=== PATIENT | male | born 1980 | race Hispanic/Latino ===

== ENCOUNTER 2022-05-07 06:10 | Emergency (ER) | payer SELFPAY ==
[2022-05-07] MEDS ORDERED: FLUORESCEIN SODIUM 1 MG/WRAP ONE (06:32)
[2022-05-07] MEDS ORDERED: TETRACAINE HCL 0.5% 4ML OPTH ONE (06:32)
--- NOTE | 2022-05-07 06:56 | ER ---
Nurse's Notes [facility] Name: Francisco Javier Ho Age: 41 yrs Sex: Male : 1980 Arrival Date: 05/07/2022 Time: 06:17 Bed 5 Private MD: Diagnosis: Right corneal foreign body, right corneal abrasion after foreign body removal Presentation: 05/07 06:30 Chief complaint: Spouse and/or significant other states: "He was cutting wood and felt vc1 like he got something in his eye.". Coronavirus screen: Vaccine status: Patient reports being unvaccinated. Client denies travel out of the [place] in the last 14 days. At this time, the client does not indicate any symptoms associated with coronavirus-19. Ebola Screen: Patient negative for fever greater than or equal to 101.5 degrees Fahrenheit, and additional compatible Ebola Virus Disease symptoms Patient denies exposure to infectious person. Patient denies travel to an Ebola-affected area in the 21 days before illness onset. No symptoms or risks identified at this time. Initial Sepsis Screen: Does the patient meet any 2 criteria? No. Patient's initial sepsis screen is negative. Does the patient have a suspected source of infection? No. Patient's initial sepsis screen is negative. Risk Assessment: Do you want to hurt yourself or someone else? Patient reports no desire to harm self or others. Onset of symptoms was May 06, 2022. 06:30 Method Of Arrival: Ambulatory vc1 06:30 Acuity: HUSSAIN 4 vc1 Triage Assessment: 06:33 General: Appears in no apparent distress. uncomfortable, Behavior is calm, cooperative, vc1 appropriate for age. Pain: Complains of pain in right eye Pain currently is 10 out of 10 on a pain scale. Noted to be resistant to opening eye; eye watering. EENT: Eyes are tearing on right inner canthus with foreign body noted in iris of right eye. Neuro: No deficits noted. Cardiovascular: No deficits noted. Respiratory: Airway is patent Respiratory effort is even, unlabored, Respiratory pattern is regular, symmetrical. GI: No deficits noted. No signs and/or symptoms were reported involving the gastrointestinal system. : No deficits noted. No signs and/or symptoms were reported regarding the genitourinary system. Derm: No deficits noted. No signs and/or symptoms reported regarding the dermatologic system. Musculoskeletal: No deficits noted. No signs and/or symptoms reported regarding the musculoskeletal system. Historical: - Allergies: 06:32 No Known Allergies; vc1 - Home Meds: 06:32 None [Active]; vc1 - PMHx: 06:32 None; vc1 - PSHx: 06:32 None; vc1 - Immunization history:: Client reports having NOT received the Covid vaccine. - Social history:: Smoking status: Patient reports the use of cigarette tobacco products, 3-4 cigs per day. - Family history:: not pertinent. Screenin:34 [facility] ED Fall Risk Assessment (Adult) History of falling in the last 3 months, vc1 including since admission No falls in past 3 months (0 pts) Confusion or Disorientation No (0 pts) Intoxicated or Sedated No (0 pts) Impaired Gait No (0 pts) Mobility Assist Device Used No (0 pt) Altered Elimination No (0 pt) Score/Fall Risk Level 0 - 2 = Low Risk Oriented to surroundings, Maintained a safe environment, Educated pt \\T\\ family on fall prevention, incl call for assistance when getting out of bed. Abuse screen: Denies threats or abuse. Nutritional screening: No deficits noted. Tuberculosis screening: No symptoms or risk factors identified. Vital Signs: 06:30 BP 119 / 87; Pulse 70; Resp 15; Temp 97.9(O); Pulse Ox 100% ; Weight 65.77 kg; Height 5 vc1 ft. 5 in. (165.10 cm); Pain 10/10; 06:30 Body Mass Index 24.13 (65.77 kg, 165.10 cm) vc1 Visual Acuity: 06:55 Left Eye Visual acuity 20/50, Normal, React To Light; Right Eye Visual acuity 20/70, kd3 Normal, React To Light; Both Eyes Visual acuity 20/40; Without Lenses; ED Course: 06:17 Patient arrived in ED. jj6 06:24 Horace Lopes MD is Attending Physician. sp4 06:28 Yessenia Ann, JANETH is Primary Nurse. kd3 06:32 Triage completed. vc1 06:54 Jenni Paredes MD is Referral Physician. sp4 07:10 Arm band placed on right wrist. kd3 07:10 Patient has correct armband on for positive identification. kd3 07:10 No provider procedures requiring assistance completed. Patient did not have IV access kd3 during this emergency room visit. Administered Medications: 06:35 Drug: Tetracaine Drops 0.5 % 1 drops Route: Ophthalmic; Site: right eye; vc1 Medication: 06:35 VIS not applicable for this client. vc1 Outcome: 06:55 Discharge ordered by . sp4 07:10 Discharged to home ambulatory. kd3 07:10 Condition: stable 07:10 Condition: stable 07:10 Discharge instructions given to patient, family, Instructed on discharge instructions, follow up and referral plans. Demonstrated understanding of instructions, follow-up care. 07:11 Patient left the ED. kd3 Signatures: Frannie Monroy jj6 Yessenia Ann RN RN kd3 Molly Wills RN RN vc1 Horace Lopes MD MD sp4
--- NOTE | 2022-05-07 06:56 | EDPHYS ---
Physician Documentation [facility] Name: Francisco Javier Ho Age: 41 yrs Sex: Male : 1980 Arrival Date: 05/07/2022 Time: 06:17 Bed 5 Private MD: ED Physician Horace Lopes HPI: 05/07 06:25 This 41 yrs old Male presents to ER via Unassigned with complaints of Eye sp4 Problem. 06:25 The patient sustained 41-year-old male presents with right eye pain after chopping wood sp4 at work, patient feels there is a foreign body in the right eye. 06:41 Patient states that since yesterday he has pain redness and irritation of the right eye sp4 and sensation of foreign body. patient has no history of medical illness and has no medical allergies. Historical: - Allergies: 06:32 No Known Allergies; vc1 - Home Meds: 06:32 None [Active]; vc1 - PMHx: 06:32 None; vc1 - PSHx: 06:32 None; vc1 - Immunization history:: Client reports having NOT received the Covid vaccine. - Social history:: Smoking status: Patient reports the use of cigarette tobacco products, 3-4 cigs per day. - Family history:: not pertinent. ROS: 06:41 Constitutional: Negative for fever, chills, and weight loss, Eyes: Negative for sp4 purulent discharge, positive for redness discomfort and sensation of foreign body in the right eye, negative for left eye complaints ENT: Negative for injury, pain, and discharge, Neck: Negative for injury, pain, and swelling, Cardiovascular: Negative for chest pain, palpitations, and edema, Respiratory: Negative for shortness of breath, cough, wheezing, and pleuritic chest pain, Abdomen/GI: Negative for abdominal pain, nausea, vomiting, diarrhea, and constipation, Back: Negative for injury and pain, : Negative for injury, bleeding, discharge, and swelling, MS/Extremity: Negative for injury and deformity, Skin: Negative for injury, rash, and discoloration, Neuro: Negative for headache, weakness, numbness, tingling, and seizure, Psych: Negative for depression, anxiety, suicide ideation, homicidal ideation, and hallucinations, Allergy/Immunology: Negative for hives, rash, and allergies, Endocrine: Negative for neck swelling, polydipsia, polyuria, polyphagia, and marked weight changes. Exam: 06:41 Constitutional: This is a well developed, well nourished patient who is awake, alert, sp4 and in no acute distress. Head/Face: Normocephalic, atraumatic. Eyes: Pupils equal round and reactive to light, extra-ocular motions intact. Lids and lashes normal. Conjunctiva and sclera are non-icteric and not injected. Left eye exam is normal , periorbital areas with no swelling, redness, or edema. Right eye exam -there is a small foreign body right cornea at the 7 O'clock location, fluorescein exam, no foreign bodies under the lids, no corneal abrasions, no purulent discharge, no sign of globe perforation ENT: Nares patent. No nasal discharge, no septal abnormalities noted. Tympanic membranes are normal and external auditory canals are clear. Oropharynx with no redness, swelling, or masses, exudates, or evidence of obstruction, uvula midline. Mucous membranes moist. Neck: Trachea midline, no thyromegaly or masses palpated, and no cervical lymphadenopathy. Supple, full range of motion without nuchal rigidity, or vertebral point tenderness. No Meningismus. Chest/axilla: Normal chest wall appearance and motion. Nontender with no deformity. No lesions are appreciated. Cardiovascular: Regular rate and rhythm with a normal S1 and S2. No gallops, murmurs, or rubs. Normal PMI, no JVD. No pulse deficits. Respiratory: Lungs have equal breath sounds bilaterally, clear to auscultation and percussion. No rales, rhonchi or wheezes noted. No increased work of breathing, no retractions or nasal flaring. Abdomen/GI: Soft, non-tender, with normal bowel sounds. No distension or tympany. No guarding or rebound. No evidence of tenderness throughout. Back: No spinal tenderness. No costovertebral tenderness. Full range of motion. Male : Normal genitalia with no discharge or lesions. Skin: Warm, dry with normal turgor. Normal color with no rashes, no lesions, and no evidence of cellulitis. MS/ Extremity: Pulses equal, no cyanosis. Neurovascular intact. Full, normal range of motion. Neuro: Awake and alert, GCS 15, oriented to person, place, time, and situation. Cranial nerves II-XII grossly intact. Motor strength 5/5 in all extremities. Sensory grossly intact. Cerebellar exam normal. Normal gait. Vital Signs: 06:30 BP 119 / 87; Pulse 70; Resp 15; Temp 97.9(O); Pulse Ox 100% ; Weight 65.77 kg; Height 5 vc1 ft. 5 in. (165.10 cm); Pain 10/10; 06:30 Body Mass Index 24.13 (65.77 kg, 165.10 cm) vc1 Visual Acuity: 06:55 Left Eye Visual acuity 20/50, Normal, React To Light; Right Eye Visual acuity 20/70, kd3 Normal, React To Light; Both Eyes Visual acuity 20/40; Without Lenses; Procedures: 06:41 Foreign Body Removal: dust, from the right eye, cornea without use of slit lamp by sp4 using a cotton-tipped swab, Tetracaine irrigation. Dressing: none, The patient tolerated the removal well, Tetracaine anesthesia applied, small dust particle appears to be wood chip, the wood chip was removed with a Q-tip, no sign of metal foreign body and no sign of the rust ring, no sign of globe perforation, eye was irrigated once again with tetracaine. MDM: 06:41 Differential diagnosis: Corneal abrasion of right eye. Corneal ulcer of right eye. sp4 Foreign body in right eye. Chemical conjunctivitis in right eye. Allergic conjunctivitis in right eye. Infectious conjunctivitis in right eye. ED course: After foreign body removal patient feel improved, patient's visual acuity is suboptimal and he was referred to see medical care manager for dilated eye exam and vision check in the next 7 to 10 days. 06:55 Patient medically screened. sp4 07:00 Data reviewed: vital signs, nurses notes. sp4 05/07 06:26 Order name: Eye Tray; Complete Time: 06:31 sp4 05/07 06:26 Order name: Fluoresene Opth strip; Complete Time: 06:31 sp4 Administered Medications: 06:35 Drug: Tetracaine Drops 0.5 % 1 drops Route: Ophthalmic; Site: right eye; vc1 Disposition Summary: 05/07/22 06:55 Discharge Ordered Location: Home sp4 Problem: new sp4 Symptoms: have improved sp4 Condition: Stable sp4 Diagnosis - Right corneal foreign body, right corneal abrasion after foreign body removal sp4 Followup: sp4 - With: Jenni Paredes MD - When: 7 - 10 days - Reason: Dilated eye exam and vision check Discharge Instructions: - Discharge Summary Sheet sp4 - Myopia sp4 - Corneal Abrasion, [id number] sp4 Forms: - Work release form eb - Thank You Letter sp4 Prescriptions: - [id number] medication eyedrops for redness relief [id number] brand use in the right eye 2 drops every 2 hours for lubricate, equate brand or other [id number] brand - apply 2 drop by OPHTHALMIC route every 2 hours for 3 days; 1 bottle; Refills: sp4 0, Product Selection Permitted Signatures: Molly Wills RN RN vc1 Horace Lopes MD MD sp4
[2022-05-07 07:15] VITALS: BP 119/87; TEMP 97.9; O2SAT 100
== END 2022-05-07 07:11 | disposition home or self-care (01) ==
LOC: ER 06:10
PROC: 08C8XZZ Extirpation of Matter from Right Cornea, External Approach (ICD-10-PCS; principal; 2022-05-07)
DX: T15.01XA Foreign body in cornea, right eye, initial encounter (principal); F17.210 Nicotine dependence, cigarettes, uncomplicated
CPT/HCPCS: 99283